=== PATIENT | female | born 1955 | race Caucasian/White ===

== ENCOUNTER 2018-05-31 18:46 | Inpatient (IN) | payer OTHER, MEDICARE ==
[~2018-05-31] VITALS: Ht 160 cm; Wt 62.6 kg
[~2018-05-31 18:46] MED LIST: ALEVE220 MG PO; BACTRIM DS TAB1 EACH PO; BENTYL10 MG PO; BONIVA150 MG PO; DARVOCET-N 1001 EACH PO; FLEXERIL PO; HYDROCODON-ACE1 EAC7 PO; HYDROCODONE-AP1 EAC6 PO; MEDROL DOSPAK21 TA1 PO; NAPROSYN500 MG PO; NOHOMEMEDICATIONS
[2018-05-31 18:47] VITALS: BP 172/85
[2018-05-31] MEDS ORDERED: VITAMIN D-32000 UNIT PO (18:51)
[2018-05-31 19:27] LABS: ABSOLUTE BASOPHILS 0.1 thou/uL (0.0-0.2); ABSOLUTE EOSINOPHILS 0.1 thou/uL (0.0-0.7); ABSOLUTE LYMPHOCYTES 1.6 thou/uL (0.8-5.3); ABSOLUTE MONOCYTES 0.7 thou/uL (0.0-1.2); ABSOLUTE NEUTROPHILS 6.7 thou/uL (1.6-8.1); BASOPHILS 0.6 %; EOSINOPHILS 0.9 %; HEMATOCRIT 43.1 % (37.0-47.0); HEMOGLOBIN 14.6 gm/dL (12.0-15.0); LYMPHOCYTES 17.5 %; MCH 31.8 pg (26.0-34.0); MCHC 33.8 g/dL (28.0-37.0); MCV 94.1 fL (80.0-100.0); MONOCYTES 7.4 %; MPV 9.2 fl. (7.2-11.1); NUCLEATED RBCS 0 /100WBC; PLATELET COUNT* 236 thou/uL (150-400); POLYS 73.6 %; RBC 4.58 mil/uL (4.20-5.00); RDW-CV 12.9 % (10.5-14.5); WBC 9.1 thou/uL (4.0-11.0)
[2018-05-31 19:41] LABS: CALCIUM 8.3 mg/dL (8.5-10.1); CREATININE 0.9 mg/dL (0.6-1.3); POTASSIUM 4.3 mmol/L (3.5-5.1)
[2018-05-31 19:46] LABS: ALBUMIN 3.9 g/dL (3.4-5.0); TOTAL BILIRUBIN 0.7 mg/dL (<0.1-1.0); TOTAL PROTEIN 7.2 g/dL (6.4-8.2)
[2018-05-31 21:45] VITALS: BP 173/84
[2018-05-31 22:30] LABS: PROTIME 10.1 Seconds (9.20-11.50)
[2018-05-31 22:37] VITALS: BP 172/85
[2018-05-31 23:00] VITALS: BP 143/73
[2018-06-01] VITALS (7 sets, daily range): BP systolic 127–163; BP diastolic 63–79
--- NOTE | 2018-06-01 01:49 | NUR ---
PATIENT ARRIVED ON UNIT AT 2129. ASSISTED TO TRANSFER TO UNIT BED. ORIENTED TO UNIT AND CALL LIGHT. ASSESSMENT COMPLETE CHARTED. SPOKE WITH DR. LERMA AT 2234 ABOUT CLEARANCE FOR SURGERY IN AM. ORDERS FOR MEDICATIONS WERE RECIEVED. DR. GALVAN WAS THEN CONTACTED AT 2244 WITH AN UPDATE. TRACTION WAS PLACE ON PATIENTS LEG WITH 10 POUNDS OF WEIGHT PER ORDERS AND TOLERATING WELL. SPOKE WITH PATIENT ABOUT INSULIN AND SHE DECLINES INSULIN AT THIS TIME SINCE HER BLOOD SUGAR HAS STARTED TO DECREASE ON ITS OWN. RECHECKED BLOOD PRESSURE AND PATIENT DID NOT NEED ORDERED PRN MEDICATION AT THIS TIME. PATIENT RESTING COMFORTABLY IN BED CALL LIGHT WITHIN REACH. NURSING WILL CONTINUE TO MONITOR.
--- NOTE | 2018-06-01 05:44 | NUR ---
PATIENT REMAINS ALERT AND ORIENTED X4 THROUGHOUT SHIFT. IV PATENT IN THE LEFT FOREARM INFUSING AT 100 ML/HR PER ORDERS. BLOOD PRESSURE WAS SLIGHTLY ELEVATED WHEN PATIENT TRANFERRED TO THE UNIT. IT HAS TRENDED DOWN AND SHE HAS NOT REQUIRED ANY PRN BLOOD PRESSURE MEDICAITION. BLOOD SUGAR WAS ALSO ELEVATED AND HAS BEEN TRENDING DOWN AND THE PATIENT HAS NOT REQUIRED INSULIN AT THIS TIME. NURSING HAS MONITORED PATIENT FREQUENTLY FOR PAIN MANAGEMENT. TRACTION IN PLACE WITH [address] POUN[address] CASTILLO IN PL[address] AND PATENT SECURED WITH STAT LOCK. PATIENT HAS BEEN ASSISTED TO REPOSITION MUCH POSSIBLE. MAINTAINED NPO STATUS SINCE MIDNIGHT. RESTING COMFORTABLY THROUGHOUT NIGHT. HOURLY ROUNDING COMPLETE. CALL LIGHT WITHIN REACH. NURSING WILL CONTINUE TO MONITOR.
--- NOTE | 2018-06-01 12:41 | EKG ---
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
--- NOTE | 2018-06-01 15:00 | NUR ---
CM SPOKE TO THE PATIENT TO DISCUSS HOME SITUATION, DISCHARGE PLANNING, AND TO INFORM OF THE ROLE OF CM. PATIENT DROWSY DURING CONVERSATION, SPOUSE AT THE BEDSIDE AND ASSSIT WITH ANSWERING ASSESSMENT QUESTIONS. PATIENT NORMALLY ACTIVE AND INDEPENDENT. 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 PATIENT OWNS A WALKER AND CANE, THEY WERE HER MOTHERS AND SHE DOES NOT USE THEM FOR MOBILITY. PATIENT HAS NO HX OF HH OR SNF. PATIENT PLANS TO RETURN HOME AT D/C. PT/OT IS ORDERED, BUT PATIENT HAS NOT BEEN SEEN BY PT/OT AT THIS TIME. CM WILL REMAIN AVAILABLE TO ASSIST AND FOLLOW NEEDED.
--- NOTE | 2018-06-01 17:32 | NUR ---
PATIENT RESTING IN BED. PATIENT HAD FEMUR REPAIR THIS AM WITHOUT INCIDENT. PATIENT SLEPT MOST OF AFTERNOON. PATIENT IS ALERT THIS EVENING. PATIENT HAS GOOD APPETITE THIS EVENING. PATIENT HAD COMPALINTS OF PAIN X 1 TREATED ADEQUATELY WITH OXYCODONE. PATIENT HAS BEEN ON BEDREST TODAY. PATIENT DENIES ANY NEEDS AT THIS TIME. CALL LIGHT WITHIN REACH. WILL CONTINUE TO MONITOR.
[2018-06-02 01:16] VITALS: BP 106/53
[2018-06-02 04:15] VITALS: BP 107/53
--- NOTE | 2018-06-02 04:43 | NUR ---
PATIENT HAS REMAINED ALERT AND ORIENTED X 4 THROUGHOUT THE SHIFT AND RESTING QUIETLY ON HOURLY ROUNDS. NURSING HAS ASSISTED PATIENT WITH REPOSITIONING AND PATIENT ASLO MAKING SOME SHIFTS INDEPENDENTLY. DRESSINGS LEFT LEG INTACT. ICE PACKS PROVIDED FOR LEFT FEMUR. MEDICATED FOR PAIN X 3 OF THIS WRITING TO GOOD EFFECT. NO NAUSEA. ADEQUATE ORAL INTAKE AND URINE OUTPUT PER CASTILLO CATHETER. IVF'S, ANTIBIOTICS AND MEDS PER ORDERS. VITAL SIGNS STABLE. HAS REMAINED AN CONTINUOUS OXIMETRY OVENIGHT WITHOUT NEED FOR O2. CONTINUE TO MONITOR.
[2018-06-02 08:10] VITALS: BP 119/61
[2018-06-02 16:07] VITALS: BP 124/67
--- NOTE | 2018-06-02 16:47 | NUR ---
PATIENT REMAINS ALERT AND ORIENTED. PAIN CONTROLLED WITH HYDROCODONE AND OXYIR. ICE PACK FOR KNEE PAIN. DRESSINGS TO LEFT LEG C/D/I. SCD'S AND ALYSHA IN PLACE. PATIENT PARTICIPATED WITH PHYSICAL THERAPY. TRANSFERS WITH ASSIST OF 1, GAIT BELT , AND WALKER. CASTILLO IN PLACE DRAINING YELLOW URINE. RA SAT 96%. CALL LIGHT WITHIN REACH. WILL CONTINUE TO MONITOR.
[2018-06-02 19:55] VITALS: BP 150/68
[2018-06-03 00:19] VITALS: BP 108/54
[2018-06-03 04:25] VITALS: BP 156/62
--- NOTE | 2018-06-03 04:38 | NUR ---
PATIENT HAS REMAINED ALERT AND ORIENTED X 4 THROUGHOUT THE SHIFT AND RESTING WELL ON HOURLY ROUNDS. PATIENT REPOSITIONING SELF. DRESSING LEFT LEG CLEAN AND DRY. ICE SEVERAL TIMES TO KNEE AREA. ORAL PAIN MEDICATIONS X 2 OF THIS WRITING TO GOOD EFFECT. DENIES NAUSEA. PASSING GAS. DECLINED LAXATIVE TONIGHT. VITAL SIGNS STABLE. TO HAVE CASTILLO CATHETER DISCONTINUED THIS AM. CONTINUE TO MONITOR.
--- NOTE | 2018-06-03 06:25 | NUR ---
NAUSEA WITHOUT EMESIS 0500. ZOFRAN PROVIDED WITH RELIEF.
--- NOTE | 2018-06-03 06:50 | NUR ---
CASTILLO CATHETER DISCONTINUED PER POST-OP PROTOCOL.
[2018-06-03 08:45] VITALS: BP 144/54
[2018-06-03] MEDS ORDERED: OXYCODONE HCL 55 MG PO (10:01)
[2018-06-03] MEDS ORDERED: NORCO 5-325 TA1 EACH PO (10:02)
[2018-06-03] MEDS ORDERED: ELIQUIS2.5 MG PO (10:04)
[2018-06-03] MEDS ORDERED: VALACYCLOVIR1000 MG PO (10:04)
[2018-06-03] MEDS ORDERED: ASPIRIN325 PO (10:05)
[2018-06-03 16:00] VITALS: BP 154/48
--- NOTE | 2018-06-03 16:27 | NUR ---
PATIENT REMAINS ALERT AND ORIENTED. PAIN CONTROLLED WITH PO MEDS. WORKED WITH PT/OT. PT RECOMMENDED PATIENT STAY UNTIL TOMORROW TO CONTINUE WORKING ON STAIRS. PATIENT HAS 12 STAIRS TO ENTER HOME. PATIENT VOIDING PER BSC. REFUSED LAXATIVE, BUT IS PASSING FLATUS. TOLERATING MEALS. DRESSING TO LEFT LEG C/D/I. PATIENT REMAINS 50% WEIGHT BEARING. VISITED TODAY. SCD'S WHILE IN BED. ALYSHA IN PLACE. UP TO CHAIR MOST OF DAY. CALL LIGHT WITHIN REACH. WILL CONTINUE TO MONITOR.
--- NOTE | 2018-06-03 18:01 | NUR ---
REFUSED MAG CITRATE BUT DID AGREE TO SOFTENER. COLACE ORDERED.
[2018-06-03 20:52] VITALS: BP 161/76
[2018-06-04] VITALS: BP 130/62
[2018-06-04 05:57] VITALS: BP 131/60
--- NOTE | 2018-06-04 07:28 | NUR ---
PATIENT HAS REMAINED ALERT AND ORIENTED X 4 THROUGHOUT THE SHIFT AND RESTING QUIETLY ON HOURLY ROUNDS. UP TO BSC WITH CGA, WALKER AND GAIT BELT. MAINTAINS WEIGHT-BEARING AT 50 % LLE. DRESSINGS CLEAN AND DRY LEFT LEG. GOOD PAIN CONTROL WITH ORAL MEDS X 2. NO NAUSEA THIS SHIFT. PASSING GAS, NO BM. VITAL SIGNS STABLE. CONTINUE TO MONITOR.
[2018-06-04 07:45] VITALS: BP 128/72
[2018-06-04 09:16] VITALS: BP 128/72
--- NOTE | 2018-06-04 13:39 | NUR ---
SPOKE WITH PT. EARLIER. SHE FEELS CONFIDENT TO RETURN HOME. HER WILL BE WITH HER ALL THE TIME. HE CAN ASSIST HER IF NEEDED. SHE HAS A WALKER AT HOME. SHE SAID SHE USES [facility] ON IN [place]. WILL CALL IN ELQUIS AND VALACYCLOVIR TO PHARMACY. DISCUSSED HOMEHEALTH. SHE CHOSE [facility] FOR P.T. CONTACTED NATALIE AND FAXED REFERRAL AND ORDERS TO HER. THEY WILL CALL PT.IN AM TO SET UP APPT.
[2018-06-04 15:57] VITALS: BP 149/71
--- NOTE | 2018-06-04 16:25 | NUR ---
PATIENT REMAINS ALERT AND ORIENTED. DENIES PAIN. WORRIED ABOUT CONSTIPATION. BOTTLE OF MAG CITRATE TODAY AND STOOL SOFTENER. SMALL BM, BUT PATIENT NOT SATISFIED AND DOES NOT WANT TO LEAVE UNTIL SHE HAS BETTER BOWEL MOVEMENT. CURRENTLY ON BSC. DRESSING TO LEFT LEG C/D/I. TEDS IN PLACE. TRANSFERS AND AMBULATES WITH STANDBY ASSIST. TOLERATING MEALS. CALL LIGHT WITHIN REACH. WILL CONTINUE TO MONITOR.
--- NOTE | 2018-06-04 17:15 | NUR ---
PATIENT HAD LARGE BM THIS EVENING. DISCHARGED AT THIS TIME WITH DAUGHTER. SCRIPTS FOR HYDROCODONE AND OXYIR GIVEN. ELOQUIS AND ACYCLOVIR CALLED INTO PATIENTS PHARMACY. PATIENT VERBALZIED UNDERSTANDING OF DC INSTRUCTIONS. IV REMOVED. PATIENT HAS WALKER FOR HOME.
--- NOTE | 2018-08-06 07:08 | OP ---
[address] [address] OPERATIVE REPORT Name: KIERSTENOLIMPIAMICHAEL Room: [address]#: [id number] Admission: 05/31/18 Attend Phys: Araceli Cordon MD Discharge: 06/04/18 Date of : 51 Report #: [id number] THIS REPORT FOR: //name// CC: Araceli Curry DICTATED BY: Vikram Harper DO DATE OF SERVICE: 06/01/2018 DIAGNOSIS: Left closed midshaft femur fracture. PROCEDURE PERFORMED: Left femur closed reduction with retrograde intramedullary nail fixation. SURGEON: Maciej Real DO. SEAMLESS TUBE DRAWER: Vikram Harper DO. SECOND LEAD TECHNOLOGIST IN CYTOGENETICS: Bharat Huerta DO. THIRD LEAD TECHNOLOGIST IN CYTOGENETICS: Coty Ochoa DO ANESTHESIA: General. ESTIMATED BLOOD LOSS: 200 mL. SPECIMENS: None. COMPLICATIONS: None. ANTIBIOTICS: Ancef 2 grams IV preop. CONDITION: The patient is stable to PACU. ORTHOPEDIC IMPLANTS: 1. [place] 13 x 340 mm supracondylar nail. 2. Claire 5.0 mm interlocking screws x 5. INDICATIONS: The patient is a pleasant 63-year-old female who was helping clean her mother's shower when she tripped and fell backwards on to the back of her left leg. She had immediate pain and deformity, was brought to the hospital where she was found to have a midshaft femur fracture. She was placed in traction, made n.p.o. after midnight, and was consented for intramedullary nail fixation of the left femur. All risks, benefits, complications, indications, alternatives were reviewed with the patient [place] [address] OPERATIVE REPORT Name: MICHAEL RIVERS Room: [address]#: [id number] Admission: 05/31/18 Attend Phys: Araceli Cordon MD Discharge: 06/04/18 Date of : 51 Report #: [id number] DESCRIPTION OF PROCEDURE: The patient was brought to the operative suite, given the benefits of general anesthesia. She was then placed supine on a Jameson flat table. The left lower extremity was then sterilely prepped and draped out in the standard fashion with a radiolucent triangle placed as well as a bump made from towels. At that time, timeout was taken to ensure correct patient, procedure, operative site, everybody in the room was in agreement. The knee was then flexed 30 degrees over the triangle. Using fluoroscopy, we were able to confirm that we were able to obtain an anatomic closed reduction with just manual manipulation of the fracture site. We then used a 10 blade scalpel through skin and subcutaneous tissue just over the patellar tendon cheating slightly medial. Once the peritoneum was incised and reflected, we then crept around the medial aspect of the patellar tendon, creating an interval, a little bit of Hoffa's fat pad was removed to allow access to our intercondylar notch. A guide pin was taken down under fluoroscopic guidance to establish our starting point. This was done under AP and lateral views. On the AP, we made sure we were in line with the shaft of the femur. On the lateral, we were at or just anterior to Blumensaat's line. Once this was taken down, we used a 12 mm entry reamer. We then maintained our reduction while passing a ball tip guidewire. We measured our nail to 355 mm, we elected to proceed with a 340 mm nail. We then passed this nail under fluoroscopic guidance. After we sequentially reamed up to a size 14 reamer, we did have some chatter. We noted under fluoroscopic imaging that there was a thickening of the lateral cortex near the fracture site, possibly secondary to treatment for osteoporosis, bisphosphonate fractures in the subtrochanteric region. This was the only area where we were able to get a lot of chatter. Once we could adequately pass a 14 mm reamer, we then passed our 13 mm diameter nail. This was taken down approximately a cm deep in the intercondylar notch, countersunk. We then used the targeting arm, placed three distal interlocking screws of appropriate length. We then using perfect [place] technique, placed 2 interlocking screws proximally from A to P. Prior to putting the proximal interlocking screws, we were able to slap with our mallet the nail, pushing it proximally further closing down our fracture site. This was done carefully while watching under fluoroscopy. Once the proximal interlocking screws were placed, final images were taken, AP and lateral of both the knee fracture site and hip. Those were saved to the PACS system. We then thoroughly irrigated the wounds, especially the knee joint, closed the capsule with a #1 Vicryl, closed subcutaneously with 2-0 Vicryl followed by sophie. Mepilex dressings were applied followed by 4 x 4s, soft roll and an Wood bandage. The patient was then awoken from anesthesia and brought to the PACU in stable condition. POSTOPERATIVE COURSE: The patient will be transferred to the medical surgical floor once stable in the PACU. She will be 50% weightbearing and work with PT and OT for gait training. She will have appropriate analgesia. She will have DVT prophylaxis in the form of Eliquis 2.5 mg p.o. b.i.d. for a total of 14 days and then transition to aspirin as DVT prophylaxis. She also will have [facility] [address] [place] [address] OPERATIVE REPORT Name: GOLDAnivalMICHAEL Meredith Room: [address]#: [id number] Admission: 05/31/18 Attend Phys: Araceli Cordon MD Discharge: 06/04/18 Date of : 51 Report #: [id number] mechanical DVT prophylaxis with SCDs and ALYSHA graves and will receive 2 more doses of Ancef 2 grams IV q.8 hours following surgery. <ELECTRONICALLY SIGNED> By: Leighton Solorzano DO 08/06/18 0708 1110 [id number] Rael DO /nt
== END 2018-06-04 17:45 | disposition home health service (06) | DRG 481 ==
LOC: M.ERS 18:46 → M.ORTHSURG 20:00 → M.TBA-ER 20:00 → M.ORTHSURG 21:18
PROVIDERS: Orthopaedic Surgery; Personal Emergency Response Attendant; ADMIT Internal Medicine
PROC: 0QS906Z Reposition Left Femoral Shaft with Intramedullary Internal Fixation Device, Open Approach (ICD-10-PCS; principal; 2018-06-01)
DX: S72.302A Unspecified fracture of shaft of left femur, initial encounter for closed fracture (principal); E87.1 Hypo-osmolality and hyponatremia; B02.9 Zoster without complications; M81.0 Age-related osteoporosis without current pathological fracture; W18.39XA Other fall on same level, initial encounter; Z88.8 Allergy status to other drugs, medicaments and biological substances; Z90.49 Acquired absence of other specified parts of digestive tract; Z90.710 Acquired absence of both cervix and uterus; Z79.2 Long term (current) use of antibiotics; Z79.899 Other long term (current) drug therapy; Y93.E9 Activity, other interior property and clothing maintenance; Y92.091 Bathroom in other non-institutional residence as the place of occurrence of the external cause; Y99.8 Other external cause status

== ENCOUNTER → 2018-09-04 | Outpatient (CLI) | payer OTHER, MEDICARE ==
[~2018-09-04] MED LIST changes: +ASPIRIN325 PO; +ELIQUIS2.5 MG PO; +NORCO 5-325 TA1 EACH PO; +OXYCODONE HCL 55 MG PO; +VALACYCLOVIR1000 MG PO; +VITAMIN D-32000 UNIT PO
== END ==
LOC: M.RAD 15:24
DX: Z12.31 Encounter for screening mammogram for malignant neoplasm of breast (principal)

== ENCOUNTER → 2019-07-31 | Outpatient (CLI) | payer OTHER, MEDICARE | LOC: M.RAD 15:53 | DX: Z12.31 Encounter for screening mammogram for malignant neoplasm of breast (principal); M81.0 Age-related osteoporosis without current pathological fracture ==

== ENCOUNTER 2021-05-24 06:32 | Inpatient (IN) | payer OTHER, MEDICARE ==
[~2021-05-24] VITALS: Ht 160 cm; Wt 66.7 kg
--- NOTE | ~2021-05-24 | H ---
[address] [address] HISTORY AND PHYSICAL Name: MICHAEL RIVERS Room: [address] IN [facility]#: [id number] Admission: 05/24/21 Attend Phys: Benjy Pierre Discharge: 05/26/21 Date of : 51 Report #: [id number] THIS REPORT FOR: cc: Livier Espinoza MD, Tuongvan T. MD Kesl, James B. DO ~ ADMIT DATE: 05/24/2021 CHIEF COMPLAINT: Left hip pain. HISTORY OF PRESENT ILLNESS: The patient is a 66-year-old female presenting to preoperative area today for percutaneous pinning of her left hip. I had originally seen her in clinic last week. Last week, she had an injury. Date of injury was 04/25/2021. She was moving boxes, felt a pain in her groin during that time. She has been carefully ambulating, but guarded with assistance and trying not to walk during that timeframe. She was diagnosed with femoral neck fracture from MRI and referred to our office. Continuing to have that pain. She has not had any change since the last visit. No worsening symptoms. She has had no other injuries or falls and here today ready for surgery. ALLERGIES: Reviewed. PAST MEDICAL HISTORY: Reviewed SURGICAL HISTORY: Reviewed FAMILY HISTORY: Reviewed. SOCIAL HISTORY: Reviewed. REVIEW OF SYSTEMS: A 14-point review of systems was completed and is negative except for her left hip pain. PHYSICAL EXAMINATION: VITAL SIGNS: Reviewed. They are stable and she is afebrile. GENERAL: She is alert and oriented x 3. HEENT: Normocephalic. Eyes: Extraocular muscles are intact bilaterally. Ears: Normal hearing. Nose: Nares patent. LUNGS: Unlabored breathing. CARDIAC: Palpable pedal pulses and no signs of DVT. ABDOMEN: Soft. PSYCHIATRIC: Appears to be a normal mood and affect. NEUROLOGIC: Neurologically intact distally in the left lower extremity. I do not appreciate any signs of complex regional pain syndrome or radicular signs or symptoms. SKIN: [place] [address] HISTORY AND PHYSICAL Name: MICHAEL RIVERS Room: [address] IN [facility]#: [id number] Admission: 05/24/21 Attend Phys: Benjy Pierre Discharge: 05/26/21 Date of : 51 Report #: [id number] MUSCULOSKELETAL: Left lower extremity groin pain with log roll. IMAGING: I did obtain a new image in the preoperative area to confirm that no displacement has occurred, it has not, no change compared to her imaging in the office last week IMPRESSION: Nondisplaced left subcapital femoral neck fracture. PLAN: We went over with the patient's again the plan today of percutaneous pinning with reasoning and indications. They are in agreement with this. The risks and complications as well as possible adverse outcomes were reviewed again with them. Please see my updated clinic note that is different than what is placed in the current chart for full details of discussion had. I addressed questions they had, they acknowledged and accepted, said they have been thorough with my explanations of things, which they are appreciative for. Risks, complications and possible adverse outcomes were acknowledged and accepted and consent given to proceed. By: 1410 1452Kendrick Carnes DO /nt
--- NOTE | ~2021-05-24 | OP ---
[address] [address] OPERATIVE REPORT Name: MICHAEL RIVERS Room: [address] IN .R#: [id number] Admission: 05/24/21 Attend Phys: Benjy Pierre Discharge: 05/26/21 Date of : 51 Report #: [id number] THIS REPORT FOR: cc: Livier Espinoza MD, Tuongvan T. MD Kesl, James B. DO ~ DATE OF SURGERY: 05/24/2021 PREOPERATIVE DIAGNOSIS: Left subcapital femoral neck fracture. POSTOPERATIVE DIAGNOSIS: Left subcapital femoral neck fracture. PROCEDURE: Percutaneous pinning, left femoral neck fracture. SURGEON: Kendrick Carnes DO ALTERATIONS SEWER: None. ANESTHESIA: General. ANTIBIOTICS: Ancef IV. FLUIDS: Please see anesthesia notes for full details. ESTIMATED BLOOD LOSS: 15 mL COMPLICATIONS: None. SPECIMENS: None. DRAINS: None. CONDITION OF PATIENT: Stable to PACU. IMPLANTS: Claire 6.5 cannulated screws fully threaded for the inferior screw, 40 mm partially threaded for the superior 2 screws. INDICATIONS FOR PROCEDURE: The patient has a left femoral neck fracture. Operative versus nonoperative treatment options given to the patient and in clinic of last week. Risks and complications were discussed not only then, but today as well. They wished for surgery. Consent given. DESCRIPTION OF PROCEDURE: I marked the left lower extremity in the presence of operative team members and everyone agreed this was correct. She was taken back to the operative suite, placed on the table supine, well-padded and secured. General anesthetic administered. X-ray brought in and confirmed as well as our [address] [address] OPERATIVE REPORT Name: MICHAEL RIVERS Room: [address] IN [facility].#: [id number] Admission: 05/24/21 Attend Phys: Benjy Pierre Discharge: 05/26/21 Date of : 51 Report #: [id number] preoperative imaging in the preoperative bay that our fracture was still nondisplaced and that we would be able to obtain imaging. The left lower extremity was sterilely prepped and draped in standard fashion. Timeout was performed indicating correct patient, procedure, site, antibiotics and the implants were present and sterile. All team members agreed. C-arm helped to sophie out incisions. Percutaneously inserted the guidewire from the most inferior screw. We made sure that this was at or above the level of the lesser, and advanced this while obtaining multiple different planes of C-arm imaging to confirm that this was well contained within bone and an appropriate position within the neck and head, it was. Same technique performed for two superior screws with anterior and posteriorly based wires. With the wires in place, we took the leg through multiple different angles of rotation as well as different angles of the C-arm showed that those wires were well contained and would be in good area for screws to be still contained within bone. At that point in time, we then made incisions over the wire, measured off the near cortices, measured again and then began placing screws. The inferior screw was fully threaded so as to not get compression and placed into a varus position of instability that measured a 90. This was placed and had excellent purchase. The superior anteriorly based screw was a 40 mm thread to held tip into a more valgus and stable position. With compression, this was measured as 85 screw, which was placed with excellent purchase. Same was performed for the posterior screw, which was 85 mm. We then removed the guidewires and again took the leg through multiple different angles of rotation and multiple different planes of the C-arm. All screws were well contained within bone femoral head and neck and in an appropriate position. We saved those images, dismissed C-arm, thoroughly irrigated with normal saline. Hemostasis maintained. Closed deep with 2-0 Monocryl and then Dermabond glue over the skin. Debriefing performed confirming procedure, blood loss and that all counts were correct and final. All team members agreed. A sterile silver-impregnated dressing applied. She was extubated and taken to PACU in stable. POSTOPERATIVE COURSE AND EVALUATION: I spoke with her , went over the images with him and addressed any questions, he had to satisfaction. He was thankful for my time and efforts. She was resting in PACU, stable vital signs, pain controlled. Neurovascularly intact. PACU films showed stable fixation and maintain nondisplaced femoral neck fracture. POSTOPERATIVE PLAN: She will be 50% weightbearing. PT, OT. [place] for 6 weeks for DVT prophylaxis as well as mechanical. COVID protocol followed at all times. By: 1540 1720Kendrick Carnes DO /darron
[~2021-05-24 06:32] MED LIST changes: +AVAPRO75 MG PO; +CALCIUM500 M1; +PROLIA60 MG/1 ML IM
[2021-05-24 13:03] LABS: HEMOGLOBIN 13.8 gm/dL (12.0-15.0); MCH 32.6 pg (26.0-34.0); MCHC 34.6 g/dL (28.0-37.0); MCV 94.3 fL (80.0-100.0); MPV 8.8 fl. (7.2-11.1); RBC 4.24 mil/uL (4.20-5.00); WBC 6.8 thou/uL (4.0-11.0)
[2021-05-24 13:16] LABS: CALCIUM 8.8 mg/dL (8.5-10.1); CREATININE 0.8 mg/dL (0.6-1.3); POTASSIUM 4.2 mmol/L (3.5-5.1)
[2021-05-24 13:21] LABS: ALBUMIN 3.9 g/dL (3.4-5.0); TOTAL BILIRUBIN 0.7 mg/dL (<0.1-1.0); TOTAL PROTEIN 7.5 g/dL (6.4-8.2)
--- NOTE | 2021-05-24 14:39 | EKG ---
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
[2021-05-24 14:54] VITALS: BP 125/70
[2021-05-24 20:30] VITALS: BP 115/60
[2021-05-25 00:16] VITALS: BP 109/54
[2021-05-25 04:56] VITALS: BP 108/54
[2021-05-25 07:13] LABS: HEMATOCRIT 37.6 % (37.0-47.0); MCH 32.7 pg (26.0-34.0); MCHC 34.6 g/dL (28.0-37.0); MCV 94.6 fL (80.0-100.0); MPV 9.5 fl. (7.2-11.1); RBC 3.98 mil/uL (4.20-5.00); RDW-CV 13.2 % (10.5-14.5); WBC 10.9 thou/uL (4.0-11.0)
[2021-05-25 07:27] LABS: CALCIUM 8.4 mg/dL (8.5-10.1); CREATININE 0.9 mg/dL (0.6-1.3); POTASSIUM 4.5 mmol/L (3.5-5.1)
[2021-05-25 16:12] VITALS: BP 113/52
[2021-05-25 20:30] VITALS: BP 107/57
[2021-05-26 08:15] VITALS: BP 116/69
[2021-05-26] MEDS ORDERED: ELIQUIS5 MG PO (11:53)
[2021-05-26] MEDS ORDERED: PERCOCET PO (11:54)
[2021-05-26 12:49] VITALS: BP 116/69
[2021-05-26 16:37] VITALS: BP 116/69
[2021-05-26 16:48] VITALS: BP 123/63
[2021-05-26 17:48] VITALS: BP 116/69
== END 2021-05-26 17:15 | disposition home health service (06) | DRG 482 ==
LOC: EDSTATUS 06:32 → M.PRE 06:33 → M.SUR 08:31 → M.TBA 12:10 → M.PRE 13:01 → M.TBA 16:24 → M.3W 16:24
PROVIDERS: Anesthesiology; Internal Medicine; ADMIT Internal Medicine; ATTEND Internal Medicine
PROC: 0QH734Z Insertion of Internal Fixation Device into Left Upper Femur, Percutaneous Approach (ICD-10-PCS; principal; 2021-05-24)
DX: S72.012A Unspecified intracapsular fracture of left femur, initial encounter for closed fracture (principal); E03.9 Hypothyroidism, unspecified; K21.9 Gastro-esophageal reflux disease without esophagitis; G89.29 Other chronic pain; G62.9 Polyneuropathy, unspecified; M16.12 Unilateral primary osteoarthritis, left hip; Z79.82 Long term (current) use of aspirin; Z79.899 Other long term (current) drug therapy; X58.XXXA Exposure to other specified factors, initial encounter; Y93.89 Activity, other specified; Y92.89 Other specified places as the place of occurrence of the external cause; Y99.8 Other external cause status